=== PATIENT | male | born 1985 | race Caucasian/White ===

== ENCOUNTER 2020-10-12 09:21 | Outpatient (CLI) | payer BC, SELFPAY | END 2020-10-12 09:22 | disposition home or self-care (01) | LOC: ANHCOVIDVC 09:21 | PROVIDERS: PCP Family Medicine | DX: Z23 Encounter for immunization (principal) | CPT/HCPCS: 0001A; 91300 ==

== ENCOUNTER 2020-11-02 09:18 | Outpatient (CLI) | payer BC, SELFPAY | END 2020-11-02 09:19 | disposition home or self-care (01) | LOC: ANHCOVIDVC 09:18 | PROVIDERS: PCP Family Medicine | DX: Z23 Encounter for immunization (principal) | CPT/HCPCS: 0002A; 91300 ==

== ENCOUNTER → 2024-02-15 12:47 | Outpatient (CLI) | payer BC, SELFPAY ==
--- NOTE | ~2024-02-15 | XR_ITS ---
EXAMINATION: XR ankle RT min 3V DATE: 02/15/2024 13:12 INDICATION: Dropped a copy couple in the distal right tibia TECHNIQUE: Anteroposterior, oblique, mortise, and lateral views of the right ankle were obtained. COMPARISON: None. FINDINGS: Alignment is normal. No fracture. Joint spaces are normal. Small heterotopic ossicle there is near th e tip the lateral malleolus likely sequela of chronic anterior talofibular ligament sprain. Bone loraine nd at the medial malleolus. Small plantar calcaneal spur. Soft tissues are unremarkable. No ankle kory nt effusion. IMPRESSION: 1. No acute osseous abnormality. Reviewed, dictated and finalized at location A.
== END ==
PROVIDERS: PCP Physician Assistant; Visit Provider Physician Assistant
DX: M25.571 Pain in right ankle and joints of right foot (principal)
CPT/HCPCS: 73610